=== PATIENT | female | born 1955 | race Caucasian/White ===

== ENCOUNTER 2017-06-11 09:39 | Emergency (ER) | payer OTHER ==
[2017-06-11] MEDS ORDERED: Ondansetron INJ* 2 MG/ML VIAL IV ONE (09:56)
[2017-06-11] MEDS: NS 0.9% 1000 ML* 2,000 ML IV ONE (10:19)
[2017-06-11 10:27] LABS: Hematocrit 47 % (35-47); Hemoglobin 16.4 g/dl (12.0-16.0); Mean Corpuscular HGB Conc 35 g/dl (31-36); Mean Corpuscular Hemoglobin 32 pg (27-31); Mean Corpuscular Volume 91 fL (80-97); Mean Platelet Volume 10 um3 (7.4-10.4); Red Blood Count 5.21 10^6/ul (4.0-5.4); Red Cell Distribution Width 14 % (10.5-15); White Blood Count 8.9 10^3/ul (3.5-10.8)
[2017-06-11 10:39] LABS: Albumin 4.4 g/dL (3.2-5.2); BUN/Creatinine Ratio 14.1 (8-20); C Reactive Protein 88.62 mg/L (< 5.00); Calcium 9.5 mg/dL (8.6-10.3); EGFR African American 73.6 (>60); EGFR Non-African American 57.2 (>60); Globulin 3.3 g/dL (2-4); Magnesium 1.7 mg/dL (1.9-2.7); Potassium 3.4 mmol/L (3.5-5.0); Total Bilirubin 0.8 mg/dL (0.2-1.0); Total Protein 7.7 g/dL (6.4-8.9)
[2017-06-11] MEDS ORDERED: Potassium Chlor TAB* 20 MEQ TAB.ER PO ONE (12:27)
[2017-06-11] MEDS ORDERED: Magnesium Oxide TAB* 400 MG PO ONE (12:27)
[2017-06-11 14:02] LABS: Urine Bacteria Absent (Absent); Urine Bilirubin Negative (Negative); Urine Glucose Negative (Negative); Urine Nitrite Negative (Negative)
[2017-06-11 14:18] VITALS: BP 125/72
--- NOTE | 2017-06-12 15:01 | ED ---
Braydon Aranda Nilda, scribed for Aureliano Arriola MD on 06/11/17 at 1048 . GI/ HPI - HPI Summary HPI Summary: This patient is a 62 year old F presenting to [facility] accompanied by with a chief complaint of moderate N/V/D since 06/09/17. The patient rates the pain 0 /10 in severity. Symptoms aggravated by food and alleviated by nothing. Patient reports muscle spasms and diffuse abd cramping (resolved), but denies fever and bloody stools. She also denies recent travels and antibiotics. - History of Current Complaint Chief Complaint: EDNauseaVomitDiarrh Time Seen by Provider: 06/11/17 09:58 Stated Complaint: DIARRHEA,VOMITING Hx Obtained From: Patient Onset/Duration: Started Days Ago, Still Present Timing: Constant Current Severity: Moderate Pain Intensity: 0 Location of Pain: Diffuse Pain Characteristics: Cramping Associated Signs and Symptoms: Positive: Other: - muscle spasms and diffuse abd cramping (resolved), but denies fever and bloody stools. Aggravating Factor(s): Food Alleviating Factor(s): Nothing - Allergy/Home Medications Allergies/Adverse Reactions: Allergies Allergy/AdvReac Type Severity Reaction Status Date / Time AMOXICILLIN Allergy Hives Uncoded 06/11/17 09:44 PMH/Surg Hx/FS Hx/Imm Hx Sensory History: Denies: Hx Legally Blind EENT History: Denies: Hx Deafness - Immunization History Date of Tetanus Vaccine: unknown Date of Influenza Vaccine: NO Infectious Disease History: Unable to Obtain/Confirm Infectious Disease History: Denies: Traveled Outside the [place] in Last 30 Days - Family History Known Family History: Positive: Diabetes - Social History Lives: With Family Alcohol Use: Daily Alcohol Amount: 6-12 beers Substance Use Type: Reports: None Smoking Status (MU): Current Every Day Smoker Review of Systems Negative: Fever Positive: Abdominal Pain - resolved, Vomiting, Diarrhea, Nausea, Other - negative bloody stools Positive: Other - muscle spasms All Other Systems Reviewed And Are Negative: Yes Physical Exam - Summary Physical Exam Summary: VITAL SIGNS: Reviewed. GENERAL: Patient is a well-developed and nourished female who is lying comfortable in the stretcher. Patient is not in any acute respiratory distress. HEAD AND FACE: Normocephalic and atraumatic. EYES: PERRLA, EOMI x 2, No injected conjunctiva. EARS: Hearing grossly intact. Ear canals and tympanic membranes are WNL. MOUTH: Oropharynx within normal limits; dry oral mucosa NECK: Supple, trachea is midline, no adenopathy, no JVD. CHEST: Symmetric, no tenderness at palpation LUNGS: Clear to auscultation bilaterally. No wheezing or crackles. CVS: RRR, S1 and S2 present, no murmurs or gallops appreciated. ABDOMEN: Soft, diffuse tenderness. No signs of distention. Positive bowel sounds. No rebound no guarding, and no masses palpated. No abdominal bruit or pulsations. EXTREMITIES: FROM in all major joints, no edema, no cyanosis or clubbing. NEURO: Alert and oriented x 3. No acute neurological deficits. Speech is normal. SKIN: Dry and warm Triage Information Reviewed: Yes Vital Signs On Initial Exam: Initial Vitals Temp Pulse Resp BP Pulse Ox 97.3 F 117 16 136/96 98 06/11/17 09:44 06/11/17 09:44 06/11/17 09:44 06/11/17 09:44 06/11/17 09:44 Vital Signs Reviewed: Yes - [place] Coma Scale Coma Scale Total: 15 Diagnostics - Vital Signs Vital Signs Temp Pulse Resp BP Pulse Ox 06/11/17 09:44 97.3 F 117 16 136/96 98 - Laboratory Lab Results: Lab Results 06/11/17 06/11/17 Range/Units 10:05 10:05 WBC 8.9 (3.5-10.8) 10^3/ul RBC 5.21 (4.0-5.4) 10^6/ul Hgb 16.4 H (12.0-16.0) g/dl Hct 47 (35-47) % MCV 91 (80-97) fL MCH 32 H (27-31) pg MCHC 35 (31-36) g/dl RDW 14 (10.5-15) % Plt Count 224 (150-450) 10^3/ul MPV 10 (7.4-10.4) um3 Neut % (Auto) 77.9 (38-83) % Lymph % (Auto) 12.5 L (25-47) % [place] % (Auto) 8.6 (1-9) % Eos % (Auto) 0.4 (0-6) % Baso % (Auto) 0.6 (0-2) % Absolute Neuts (auto) 6.9 (1.5-7.7) 10^3/ul Absolute Lymphs (auto) 1.1 (1.0-4.8) 10^3/ul Absolute Monos (auto) 0.8 (0-0.8) 10^3/ul Absolute Eos (auto) 0 (0-0.6) 10^3/ul Absolute Basos (auto) 0.1 (0-0.2) 10^3/ul Absolute Nucleated RBC 0.01 10^3/ul Nucleated RBC % 0.1 Lactic Acid 1.2 (0.5-2.0) mmol/L Result Diagrams: 06/11/17 10:05 06/11/17 10:05 Lab Statement: Any lab studies that have been ordered have been reviewed, and results considered in the medical decision making process. GIGU Course/Dx - Course Assessment/Plan: This patient is a 62 year old F presenting to [facility] accompanied by with a chief complaint of moderate N/V/D since 06/09/17. The patient rates the pain 0/10 in severity. Symptoms aggravated by food and alleviated by nothing. Patient reports muscle spasms and diffuse abd cramping ( resolved), but denies fever and bloody stools. She also denies recent travels and antibiotics. Pending labs. Blood work is without significant abnormalities. ED physician has reviewed this radiology report and agrees. In the ED course, the patient was given IC fluids and Zofran. After hydration and medications all symptoms improved. She tolerated PO w/o nausea or vomiting. The pt is hemodynamically stable, alert and oriented x3. Pt is stable and will be D/C with a diagnosis of Nausea, Vomitting, and Diarrhea. Pt understands and is agreeable with this plan. I discussed all the findings and test results with the patient. Patient was instructed to return to the emergency room immediately if any of the symptoms return or worsens. Plan of care was discussed with the patient and understands and agrees. All questions were answered at patient satisfaction. There were no further complaints or concerns. Lung exam before discharge: CTA B/L. Good air exchange. No wheezing or crackles heard. CVS: S1 and S2 present. No murmurs appreciated. Patient is alert and oriented x 3. Patient is hemodynamically stable. Patient will be discharged home with follow up PCP in the next 2-3 days - Diagnoses Differential Diagnoses - Female: Gastritis, Gastroenteritis (Viral), Gerd, Vomiting Provider Diagnoses: Nausea vomiting and diarrhea Discharge - Discharge Plan Condition: Stable Disposition: HOME Patient Education Materials: Acute Nausea and Vomiting (ED), Acute Diarrhea (ED ) Referrals: Suresh Lopez MD [Primary Care Provider] - 1 Week Additional Instructions: RETURN TO THE EMERGENCY DEPARTMENT FOR CHANGING OR WORSENING SYMPTOMS. The documentation as recorded by the Braydon yi Nilda accurately reflects the service I personally performed and the decisions made by Flako mares Walter, MD.
== END 2017-06-11 14:17 | disposition home or self-care (01) ==
LOC: ED 09:39
DX: R11.2 Nausea with vomiting, unspecified (principal); R19.7 Diarrhea, unspecified; F17.200 Nicotine dependence, unspecified, uncomplicated
CPT/HCPCS: 36415; 80053; 81003; 81015; 83605; 83690; 83735; 85025; 86140; 96360; 96374; 99282; A9270-GY; J2405